=== PATIENT | female | born 1940 | race Caucasian/White ===

== ENCOUNTER 2024-04-29 07:29 | Day surgery (SDC) | payer OTHER ==
[2024-04-29] VITALS (11 sets, daily range): BP systolic 120–145; BP diastolic 48–61; PULSE 43–52; RESP 8–20; TEMP 97.7; O2SAT 92–97
[~2024-04-29] VITALS: Ht 162.6 cm; Wt 69.1 kg
[~2024-04-29 07:29] MED LIST: ALBU8HFA PO; AMLO10TA4 PO; ATEN-169 PO; BECL8.7A6 INH; ESTR0.5T36 PO; HYDR25TA90 PO
[2024-04-29] MEDS ORDERED: AMLO5TAB PO (08:22)
[2024-04-29] MEDS ORDERED: ATEN-27 PO (08:22)
[2024-04-29] MEDS ORDERED: ATEN-55 PO (08:22)
[2024-04-29] MEDS ORDERED: ATOR20TA66 PO (08:23)
[2024-04-29] MEDS ORDERED: ASPI-611 PO (08:23)
[2024-04-29] MEDS ORDERED: FLUO-1 (08:24)
[2024-04-29] MEDS ORDERED: CALC-336 PO (08:24)
[2024-04-29] MEDS ORDERED: LOPE2CAP PO (08:27)
[2024-04-29 08:58] LABS: BASOPHILS % (AUTO) 0.9 % (0-1); EOSINOPHILS # (AUTO) 0.1 X10'3 (0-0.9); EOSINOPHILS % (AUTO) 2.6 % (0-6); HEMATOCRIT 45.1 % (35.0-45.0); HEMOGLOBIN 15.1 g/dl (12.0-16.0); LYMPHOCYTES # (AUTO) 1.4 X10'3 (1.1-4.8); LYMPHOCYTES % (AUTO) 26.6 % (21-51); MEAN CORPUSCULAR HEMOGLOBIN 31.5 PG (27.0-31.0); MEAN CORPUSCULAR HGB CONC 33.4 g/dL (33.0-36.5); MEAN CORPUSCULAR VOLUME 94.1 FL (78-98); MEAN PLATELET VOLUME 8.5 FL (7.4-10.4); MONOCYTES # (AUTO) 0.6 X10'3 (0-0.9); MONOCYTES % (AUTO) 11.6 % (2-12); NEUTROPHILS # (AUTO) 3.1 X10'3 (1.8-7.7); NEUTROPHILS % (AUTO) 58.3 % (42-75); PLATELET COUNT 207 X10'3 (140-440); RED BLOOD COUNT 4.79 X10'6 (4.20-5.60); RED CELL DISTRIBUTION WIDTH 13.8 % (11.5-14.5); WHITE BLOOD COUNT 5.3 X10'3 (4.5-11.0)
[2024-04-29 09:10] LABS: PROTHROMBIN TIME 10.9 SECONDS (9.0-12.0)
[2024-04-29] MEDS: diphenhydrAMINE 25mg capsule PO PRN (09:17)
[2024-04-29] MEDS: sodium bicarbonate 1meq/ml syr 150 ML in dextrose 5%-water 1,000 ML IV ONE (09:17)
[2024-04-29] MEDS: normal saline 1,000 ML IV SCH (09:17)
[2024-04-29] MEDS ORDERED: heparin 1,000unit/ml 10ml vial 10 ML ONE (09:42)
[2024-04-29] MEDS ORDERED: verapamil 2.5 mg/ml inj IV ONE (09:42)
[2024-04-29] MEDS ORDERED: iohexol 350 MG/ML 50ML vial IV ONE (09:42)
[2024-04-29] MEDS ORDERED: iohexol 350MG/ML 100ml bottle IV ONE (09:42)
[2024-04-29] MEDS ORDERED: midazolam 1 mg/ML 2ml injection ONE (09:42)
[2024-04-29] MEDS ORDERED: LIDOcaine 1% (10mg/ml) 2ml vial ONE (09:42)
[2024-04-29] MEDS ORDERED: fentaNYL/PF 50MCG/1 ML 2ML syringe ONE (09:42)
[2024-04-29] MEDS ORDERED: nitroGLYCERIN 500mcg/5mL D5W 5 ML IV ONE (09:43)
[2024-04-29 09:53] LABS: ALBUMIN 4.1 G/DL (3.4-5.0); ANION GAP 9 (8-16); BLOOD UREA NITROGEN 26 MG/DL (7-18); BUN/CREATININE RATIO 26.3 (10.0-20.0); CALCIUM 8.9 MG/DL (8.5-10.1); CHLORIDE 104 MMOL/L (99-107); CREATININE 0.99 MG/DL (0.40-0.90); GLUCOSE 117 MG/DL (70-104); MAGNESIUM 2.3 MG/DL (1.5-2.4); POTASSIUM 3.9 MMOL/L (3.5-5.1); SODIUM 140 MMOL/L (135-145); eCRCL 38 ML/MIN; eGFR 54 ML/MIN
[2024-04-29] MEDS ORDERED: ondansetron/PF 4mg/2ml inj IV PRN (12:50)
[2024-04-29] MEDS ORDERED: proCHLORperazine 10 MG/2 ml inj IV PRN (12:50)
[2024-04-29] MEDS ORDERED: HYDROcodone/acetaminophen 10/325mg tab PO PRN (12:50)
[2024-04-29] MEDS ORDERED: HYDROcodone/acetaminophen 5mg/325mg tablet PO PRN (12:50)
[2024-04-29] MEDS ORDERED: PANT-47 PO (14:10)
== END 2024-04-29 14:30 | disposition home or self-care (01) ==
LOC: SSTAY O 07:29
PROVIDERS: ATTEND Internal Medicine Cardiovascular Disease
DX: R07.89 Other chest pain (principal); I10 Essential (primary) hypertension; Z79.899 Other long term (current) drug therapy; Z90.722 Acquired absence of ovaries, bilateral; Z90.79 Acquired absence of other genital organ(s); Z90.89 Acquired absence of other organs; Z90.710 Acquired absence of both cervix and uterus; Z98.890 Other specified postprocedural states; Z91.041 Radiographic dye allergy status; Z88.8 Allergy status to other drugs, medicaments and biological substances; Z80.1 Family history of malignant neoplasm of trachea, bronchus and lung; Z82.49 Family history of ischemic heart disease and other diseases of the circulatory system
CPT/HCPCS: 36415; 80048; 83735; 85025; 85610; 93005; 93458; 99152; 99153; J1644; J2003; J2250; J3010; J3490; J7030; J7070; Q0163; Q9967; A6258; A6402; C1769; C1894